=== PATIENT | male | born 1990 | race African-American/Black ===

== ENCOUNTER 2018-12-25 02:03 | Inpatient (IN) | payer MEDICARE, MEDICAID ==
[2018-12-25] MEDS ORDERED: RINGERS SOLUTION,LACTATED 1,000 ML IV ONE (02:09)
--- NOTE | 2018-12-25 02:15 | ER Document Report ---
ED General - General Stated Complaint: DIFFICULTY BREATHING Time Seen by Provider: 12/25/18 02:07 Cannot obtain history due to: Unstable vital signs Notes: Patient is a 28-year-old male with past medical history of essential hypertension, schizophrenia, presents by EMS with profoundly low blood pressure. EMS reports that they were called as a general illness call, when they arrived patient was noted to be sitting on the toilet, pale, diaphoretic and did not have palpable radial pulses. They state that they could not obtain a blood pressure automatic or manual methods. Patient was given fluids in route to the hospital with minimal improvement of his blood pressure. Patient himself states that each night that he takes his blood pressure pill he feels "crappy" and relates lightheadedness and feeling he is going to pass out. He is also had some nausea and vomiting when he has these episodes of feeling this way. History is otherwise limited secondary to the patient's profound instability at time of presentation Past Medical History - General Information source: Patient - Social History Smoking Status: Never Smoker Frequency of alcohol use: None Drug Abuse: None Lives with: Parents Family History: Reviewed & Not Pertinent Review of Systems - Review of Systems Notes: Constitutional: Negative for fever. Positive for lightheadedness HENT: Negative for sore throat. Eyes: Negative for visual changes. Cardiovascular: Positive chest discomfort Respiratory: Negative for shortness of breath. Gastrointestinal: Negative for abdominal pain, positive for nausea Genitourinary: Negative for dysuria. Musculoskeletal: Negative for back pain. Skin: Negative for rash. Neurological: Negative for headaches, weakness or numbness. 10 point ROS negative except as marked above and in HPI. Physical Exam - Vital signs Vitals: Resp 19 12/25/18 02:05 Interpretation: Hypotensive, Tachycardic Notes: PHYSICAL EXAMINATION: GENERAL: Extremely ill in appearance, price in color. Somewhat listless although does speak in complete sentences HEAD: Atraumatic, normocephalic. EYES: Pupils equal round and reactive to light, extraocular movements intact, sclera anicteric, conjunctiva are normal. ENT: nares patent, oropharynx clear without exudates. Moderately dry mucous membranes. NECK: Normal range of motion, supple without lymphadenopathy LUNGS: Mild tachypnea with shallow respirations HEART: Regular tachycardia without murmurs ABDOMEN: Soft, obese abdomen, nontender, normoactive bowel sounds. No guarding, no rebound. No masses appreciated. EXTREMITIES: no pitting or edema. No cyanosis. NEUROLOGICAL: No focal neurological deficits. Moves all extremities spontaneously and on command. PSYCH: Somewhat lethargic although answers all questions appropriately SKIN: Cool, diaphoretic skin Course - Re-evaluation Re-evalutation: 12/25/18 02:12 Patient presents mildly ill in appearance, however mentating. Mildly slow to respond to any questions. Blood pressure is however profoundly low initial systolic of 50. The patient reports that each time he takes his medications in the that he feels this way. He was recently started on a combination of lisinoprilhydrochlorothiazide / and began taking it 1 week ago. States that since that time he has continued to feel this way each time he takes the medication. The patient also takes quetiapine, haloperidol. Denies taking any extra medications of any kind. EMSs report that when they first got that the patient denied to have palpable radial pulses. The pressure improved slightly in route to the hospital. However at the time of my evaluation is again profoundly low. We have ordered 2 L of lactated Ringer's to be bolused wide open on pressure bags. If this does not bring the patient's blood pressure into acceptable range a central line will be placed for infusion of norepinephrine. Patient is critically ill, in guarded condition and will continue to be reassessed at regular intervals. 12/25/18 02:53 Documentation delayed as have been at this patient's bedside continuously since arrival. The patient continued to have precipitous decline of his blood pressure despite fluid boluses. Systolic pressure went as low as 40. At this point I did push 50 mcg of IV epinephrine directly as I was worried the patient will be scott-arrest at such a pressure. This did bring his blood pressures in the 1 teens and allowed for time to place a right femoral central line. This was placed on second attempt as the guidewire did become bent during dilation on the first dilation secondary to patient's obesity. Second attempt without any complication. Patient tolerated procedure well. Norepinephrine infusion initiated thereafter targeting a goal mean arterial pressure of 65. It is very unusual that despite multiple pressure checks and multiple different extremities including manual pressures the patient's blood pressure continues to be sober from the low yet he continues to mentate. The exact etiology of the patient's hypotension is unclear to me although it appears to be medication related as I cannot see any discernible additional cause of the causing this. EKG is normal. The patient on bedside echocardiogram did not demonstrate any evidence of a pericardial effusion. Fast exam without any evidence of intraperitoneal bleed. Chest x-ray pending although pleural ultrasound does not demonstrate any evidence of a pneumothorax. Labs are pending as we were unable to obtain labs from initial lines but these will be pulled off of central line. 12/25/18 03:04 Patient blood pressure is currently 101/69 on 4 mcg/min of norepinephrine. Mentation and overall appearance is much improved. Labs pending. Chest x-ray pending. 12/25/18 03:55 Chest x-ray without evidence of pneumothorax. Blood pressure 115 on 45 on 6 of norepinephrine. Labs do show renal failure with a creatinine of 3.3, BUN 30. Bladder ultrasound does not show any evidence of significant urinary retention and patient does decline a Strauss catheter for I's and O's monitoring. I cannot see any alternative explanation at this time for the patient's profound hypotension except medication overdose or a very severe response to lisinopril/hydrochlorthiazide. The patient has received a stress dose of Solu- Cortef 100 mg. I did discuss with the hospitalist Dr. Urias who advised blood cultures and 1 g of ceftriaxone. Patient does not have an obvious identifiable source of infection although I do agree this is a reasonable management point at this time. 12/25/18 04:06 - Vital Signs Vital signs: Temp Pulse Resp BP Pulse Ox 97.8 F 15 100/49 L 99 12/25/18 02:14 12/25/18 03:41 12/25/18 03:41 12/25/18 03:41 - Laboratory Result Diagrams: 12/25/18 02:54 12/25/18 02:54 Laboratory results interpreted by me: 12/25/18 12/25/18 02:54 02:54 WBC 13.7 H Hgb 12.3 L MCH 26.8 L RDW 14.9 H Seg Neutrophils % 84.2 H Lymphocytes % 8.6 L Absolute Neutrophils 11.6 H BUN 30 H Creatinine 3.22 H Est GFR ( Amer) 28 L Est GFR (Non-Af Amer) 23 L Glucose 121 H Alkaline Phosphatase 160 H Creatine Kinase 377 H - Diagnostic Test Radiology reviewed: Image reviewed, Reports reviewed Radiology results interpreted by me: 12/25/18 03:57 Chest x-ray: No acute infiltrate or pneumothorax - EKG Interpretation by Me Additional EKG results interpreted by me: 12/25/18 03:57 Sinus tachycardia, rate 109. No ST elevations or depressions. QTC is 453. Procedures - Central Line Right Femoral Consent obtained: No - Emergent, severe hypotension Central line pre-insertion: Sterile PPE donned, Chloraprep applied, Sterile drapes applied Central line lumen type: Triple Anesthetic type: 1% Lidocaine mL's of anesthesia: 5 Ultrasound guided: Yes CM at insertion site: 30 Line secured with sutures: Yes Central line post-insertion: Blood return from lumens, Biopatch applied, Sutured, Sterile dressing applied, Position confirmed w/ CXR Number of attempts: 2 Complications: No Notes: 12/25/18 03:58 Initial wire did not bend on dilation requiring wire to be removed and procedure to be restarted. Second attempt completed without any complication. Critical Care Note - Critical Care Note Total time excluding time spent on procedures (mins): 85 Comments: Critical care time spent obtaining history from patient or surrogate, discussions with consultants, development of treatment plan with patient or surrogate, evaluation of patient's response to treatment, examination of patient, ordering and performing treatments and interventions, ordering and r eview of laboratory studies, re-evaluation of patient's condition, ordering and review of radiographic studies Discharge - Discharge Clinical Impression: Vasogenic shock, Diaphoresis Acute renal failure Qualifiers: Acute renal failure type: unspecified Qualified Code(s): N17.9 - Acute kidney failure, unspecified Condition: Critical Disposition: ADMITTED INPATIENT Admitting Provider: Chris (Hospitalist) Unit Admitted: ICU
[2018-12-25] MEDS ORDERED: EPINEPHRINE INJ/PF 1 MG/1 ML AMPULE ONE (02:21)
[2018-12-25] MEDS ORDERED: NOREPINEPHRINE BITARTRATE INJ/PF 4 MG/4 ML SDV IV ONE (02:46)
[2018-12-25] MEDS ORDERED: HYDROCORTISONE SOD SUCCINATE INJ/PF 100 MG/2 ML SDV IV ONE (02:53)
[2018-12-25] MEDS ORDERED: DEXTROSE 5%-WATER 250 ML with NOREPINEPHRINE BITARTRATE 4 MG IV PRN ×2 (03:03)
[2018-12-25] MEDS ORDERED: EPINEPHRINE INJ 1 MG/10 ML DISP.SYRIN IV ONE (03:03)
[2018-12-25] MEDS ORDERED: LIDOCAINE 2% URO-JET 5 ML KIT MM ONE (03:03)
[2018-12-25] MEDS ORDERED: NORMAL SALINE 1000 ML 2,000 ML IV ONE (03:03)
[2018-12-25 03:09] LABS: ABSOLUTE BASOPHILS # (AUTO) 0.1 10^3/uL (0.0-0.2); ABSOLUTE LYMPHOCYTES (AUTO) 1.2 10^3/uL (0.5-4.7); ABSOLUTE MONOCYTES (AUTO) 0.9 10^3/uL (0.1-1.4); ABSOLUTE NEUT (AUTO) 11.6 10^3/uL (1.7-8.2); BASOPHILS % (AUTO) 0.5 % (0-2); EOSINOPHILS % (AUTO) 0.2 % (0-6); HEMOGLOBIN 12.3 g/dL (13.5-17.0); LYMPHOCYTES % (AUTO) 8.6 % (13-45); MEAN CORPUSCULAR HEMOGLOBIN 26.8 pg (27.0-33.4); MEAN CORPUSCULAR HGB CONC 32.4 g/dL (32.0-36.0); MEAN CORPUSCULAR VOLUME 83 fl (80-97); MONOCYTES % (AUTO) 6.5 % (3-13); PLATELET COUNT 367 10^3/uL (150-450); RED CELL DISTRIBUTION WIDTH 14.9 % (11.5-14.0); SEGMENTED NEUTROPHILS % (AUTO) 84.2 % (42-78); TOTAL CELLS COUNTED % (AUTO) 100 %; WHITE BLOOD COUNT 13.7 10^3/uL (4.0-10.5)
[2018-12-25 03:28] LABS: ALANINE AMINOTRANSFERASE 44 U/L (21-72); ALBUMIN 3.6 g/dL (3.5-5.0); ALCOHOL < 10 mg/dL (NONE DETECTED); ALKALINE PHOSPHATASE 160 U/L (38-126); ANION GAP 8 (5-19); ASPARTATE AMINO TRANSFERASE 36 U/L (17-59); BILIRUBIN,DIRECT 0.3 mg/dL (0.0-0.4); BILIRUBIN,TOTAL 0.6 mg/dL (0.2-1.3); BLOOD UREA NITROGEN 30 mg/dL (7-20); CALCIUM 9.2 mg/dL (8.4-10.2); CARBON DIOXIDE 24 mmol/L (22-30); CHLORIDE 107 mmol/L (98-107); CREATINE KINASE 377 U/L (55-170); GLUCOSE 121 mg/dL (75-110); POTASSIUM 4.4 mmol/L (3.6-5.0); SODIUM 138.9 mmol/L (137-145); TOTAL PROTEIN 6.4 g/dL (6.3-8.2)
[2018-12-25 03:38] LABS: CREATINE KINASE MB 0.34 ng/mL (<4.55)
[2018-12-25 03:39] LABS: TROPONIN I < 0.012 ng/mL
[2018-12-25] MEDS ORDERED: CEFTRIAXONE INJ 1000 MG VIAL IV ONE (03:45)
[2018-12-25] MEDS ORDERED: MAG HYDROX/AL HYDROX/SIMETH SUSP 30 ML UDCUP PO PRN (03:48)
[2018-12-25] MEDS ORDERED: MAGNESIUM HYDROXIDE SUSP 30 ML UDCUP PO PRN (03:48)
[2018-12-25] MEDS ORDERED: ACETAMINOPHEN 325 MG TABLET PO PRN (03:48)
[2018-12-25] MEDS ORDERED: ZOLPIDEM TARTRATE 5 MG TABLET PO PRN (03:48)
[2018-12-25] MEDS ORDERED: ONDANSETRON HCL INJ/PF 4 MG/2 ML SDV IV PRN (03:48)
[2018-12-25] MEDS ORDERED: CEFTRIAXONE 1 GM/D5W RTU 1 GM/50 ML RTUPB IV ONE (03:53)
--- NOTE | 2018-12-25 04:01 | RADIOLOGY REPORT (SQ) ---
Chest single view on 12/25/2018 at 3:23 AM CLINICAL INDICATION: Chest pain COMPARISON: None FINDINGS: The lungs are clear. Couple of overlying wires are noted. Cardiac, hilar and mediastinal contours are within normal limits. Pulmonary vascularity is within normal limits. No bony abnormality is noted. IMPRESSION: No active disease.
[2018-12-25] MEDS ORDERED: EPINEPHRINE INJ/PF 1 MG/1 ML AMPULE SUBCUT ONE (04:04)
[2018-12-25] MEDS: DEXTROSE 5%-WATER 250 ML with NOREPINEPHRINE BITARTRATE 4 MG IV PRN ×4 (05:08→11:44)
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
--- NOTE | 2018-12-25 06:41 | EKG REPORT ---
SEVERITY:- BORDERLINE ECG - SINUS TACHYCARDIA INFERIOR Q WAVES, PROBABLY NORMAL VARIATION : Confirmed by: Zachariah Flynn MD 25-Dec-2018 06:39:37
[2018-12-25] MEDS: NORMAL SALINE 1000 ML 1,000 ML IV PRN ×3 (07:00→17:24)
[2018-12-25] MEDS: PANTOPRAZOLE SODIUM 40 MG TABLET.DR PO SCH (09:00)
[2018-12-25] MEDS: ENOXAPARIN SODIUM INJ 40 MG/0.4 ML DISP.SYRIN SUBCUT SCH (09:02)
--- NOTE | 2018-12-25 09:25 | PDOC PROGRESS REPORT ---
Subjective Progress Note for:: 12/25/18 Subjective:: 28 year old -Palest[place] male with a history of schizophrenia, bipolar disorder and PTSD as well as hypertension and insomnia who presented to the emergency room with acute onset of dizziness and diaphoresis and low blood pressure. The patient took his lisinopril HCT as well as 2 tablets of Haldol 5 mg, 1 p.o. Seroquel as well as 2 Neurontin 300 mg and slept around 8 PM. He woke up at 10:20 PM diaphoretic and dizzy. He was trying to go to the bathroom to have a bowel movement and could not stand. He later admitted to go there however his color turned price per his family's report. EMS was called. They were not able to get a blood pressure on him. They started IV fluids on him and brought him to the emergency room. Upon arrival to the ER, his initial blood pressure was 57/43 with a pulse of 109 respiratory rate of 15, temperature 97.8 and pulse oximetry of 92% on room air. Labs revealed leukocytosis of 13.7 with neutrophilia of 84.2 with absolute neutrophils 11.7. Hemoglobin was 12.3 hematocrit 38 with platelets of 367. His CMP revealed a BUN of 30 and creatinine 3.2 with alk phos of 160 and CK of 377 and his lactic acid was 2. His alcohol level was less than 10. The patient admits to smoking cocaine however he stated the last time was Tuesday night. He also smokes marijuana occasionally. He was given 2 L bolus of IV normal saline 1 L of IV lactated Ringer as well as 1 mg of subcu epi and 1 mg of IV epinephrine. His blood pressure was still suboptimal at 77/39 and therefore he was started on IV Levophed. His blood pressures been came up to 110/37. His urinalysis was was still pending and therefore he was started on IV Rocephin 1 g. His portable chest x-ray showed no acute cardiopulmonary disease. He will be admitted to an ICU bed for further evaluation and management. 01/04/2019 9:10 AM patient is comfortably in the bed communicating well. Denies any suicidal ideation. He admitted that he is taking extra psychiatric medications because present dose is not working. His blood pressure at this point is 116/65 with a heart rate of 99. Pulse ox is 99% on room air. He is still on Levophed 10 mics. Also on IV fluids at 150 cc/h. Plan is to keep him in ICU for another day. His psychiatric medications are on hold. Psych consult was requested.[id number] Reason For Visit: SHOCK Physical Exam Vital Signs: Temp Pulse Resp BP Pulse Ox 97.4 F 96 20 115/59 L 94 12/25/18 08:00 12/25/18 08:00 12/25/18 08:00 12/25/18 08:00 12/25/18 08:00 Intake & Output 12/24/18 12/25/18 12/26/18 06:59 06:59 06:59 Intake Total 2002 116 Output Total 0 Balance 2002 116 Weight 167 kg General appearance: PRESENT: no acute distress, obese Head exam: PRESENT: atraumatic Eye exam: PRESENT: PERRLA Mouth exam: PRESENT: moist, tongue midline Teeth exam: PRESENT: poor dentation Neck exam: ABSENT: carotid bruit, JVD, lymphadenopathy, thyromegaly Respiratory exam: PRESENT: clear to auscultation verna. ABSENT: rales, rhonchi, wheezes Cardiovascular exam: PRESENT: RRR. ABSENT: diastolic murmur, rubs, systolic murmur GI/Abdominal exam: PRESENT: normal bowel sounds, soft. ABSENT: distended, guarding, mass, organolmegaly, rebound, tenderness Extremities exam: PRESENT: full ROM. ABSENT: calf tenderness, clubbing, pedal edema Neurological exam: PRESENT: alert, awake, oriented to person, oriented to place, oriented to time, oriented to situation, CN II-XII grossly intact. ABSENT: motor sensory deficit Psychiatric exam: PRESENT: appropriate affect, normal mood. ABSENT: homicidal ideation, suicidal ideation Results Laboratory Results: 12/25/18 02:54 12/25/18 02:54 12/25/18 12/25/18 12/25/18 02:54 02:54 02:54 WBC 13.7 H RBC 4.60 Hgb 12.3 L Hct 38.0 MCV 83 MCH 26.8 L MCHC 32.4 RDW 14.9 H Plt Count 367 Seg Neutrophils % 84.2 H Lymphocytes % 8.6 L Monocytes % 6.5 Eosinophils % 0.2 Basophils % 0.5 Absolute Neutrophils 11.6 H Absolute Lymphocytes 1.2 Absolute Monocytes 0.9 Absolute Eosinophils 0.0 Absolute Basophils 0.1 Sodium 138.9 Potassium 4.4 Chloride 107 Carbon Dioxide 24 Anion Gap 8 BUN 30 H Creatinine 3.22 H Est GFR ( Amer) 28 L Est GFR (Non-Af Amer) 23 L Glucose 121 H Lactic Acid 2.0 Calcium 9.2 Total Bilirubin 0.6 AST 36 ALT 44 Alkaline Phosphatase 160 H Total Protein 6.4 Albumin 3.6 12/25/18 12/25/18 02:54 02:54 Creatine Kinase 377 H CK-MB (CK-2) 0.34 Troponin I < 0.012 Impressions: Chest X-Ray 12/25/18 02:08 IMPRESSION: No active disease. Assessment and Plan - Diagnosis (1) Acute kidney injury Is this a current diagnosis for this admission?: Yes Plan: He will be hydrated with IV normal saline and his BMP will be followed. His lisinopril HCT will be held off. 12/25/2018-patient's serum creatinine on admission is 3.2 between have any previous creatinine levels. Baseline is unknown. Acute kidney injury most likely secondary to prerenal causes and lisinopril. Lisinopril/hydrochlorothiazide is on hold patient is receiving IV fluids at 150 cc/h. Patient is on also on Levophed. Renal ultrasound is requested. (2) Shock Is this a current diagnosis for this admission?: Yes Plan: The patient's blood pressure has improved on IV Levophed. His hypotension and shock unlikely related to his antihypertensive therapy. It could be partly exacerbated by volume depletion. I cannot rule out infectious etiology before the results of his urinalysis. He will be admitted to an ICU bed and continued on it. This will be tapered gradually today while continuing hydration with IV normal saline. His lisinopril HCT will obviously be held off. We empirically placed him on IV Rocephin for the possibility of infectious etiology and septic shock. I advised the patient to check his blood pressure at least twice a day at home. He has not taken but [address] in the last 13 days since he had his prescription. 12/25/2018 patient came in with a very low blood pressures he was also symptomatic with dizziness unable to stand up at home. He was given IV fluids boluses in the emergency room and started on IV Levophed. Hypotensive shock most likely se condary to poor oral intake and blood pressure medications. Lisinopril/hydrochlorothiazide is on hold. plan Is to continue IV fluids and Levophed at this point. (3) Bipolar disorder Is this a current diagnosis for this admission?: Yes Plan: We will continue Seroquel and Neurontin. 12/25/2018-patient has history of bipolar disorder he is on Seroquel, trazodone, Neurontin, haloperidol at home those medications are on hold psych consult was requested. (4) History of hypertension Is this a current diagnosis for this admission?: Yes Plan: His lisinopril HCT will be held off For 82,019 patient has history of hypertension taking lisinopril/hydrochlorothiazide at home. Because of the acute renal failure and hypertension blood pressure medications are on hold. (5) Morbid obesity Is this a current diagnosis for this admission?: No Plan: 12/25/2018-patient's BMI is more than 40 diet exercise weight loss lifestyle modifications are discussed with. Dietary consult was requested. - Time Time Spent with patient: 25-34 minutes Smoking Cessation Education: over 10 minutes Medications reviewed and adjusted accordingly: Yes Anticipated discharge: Home
[2018-12-25] MEDS: NICOTINE 21 MG/24 HR PATCH.TD24 TD SCH (09:44)
--- NOTE | 2018-12-25 10:24 | RADIOLOGY REPORT (SQ) ---
EXAM DESCRIPTION: U/S RETROPERITON (RENAL/AORTA) COMPLETED DATE/TIME: 12/25/2018 10:07 am REASON FOR STUDY: renal failure COMPARISON: None. TECHNIQUE: Dynamic and static grayscale images acquired of the kidneys and bladder and recorded on P ACS. Additional selected color Doppler and spectral images recorded. LIMITATIONS: The examination is limited due to patient's body habitus. FINDINGS: RIGHT KIDNEY: The right kidney measures 12.0 x 6.5 x 7.2 cm, normal size. Normal echogeni city. No solid or suspicious masses. No hydronephrosis. No calcifications. LEFT KIDNEY: The left kidney measures 11.2 x 5.8 x 6.0 cm, normal size. Normal echogenicity. No darrell d or suspicious masses. No hydronephrosis. No calcifications. BLADDER: No masses. Bilateral ureteral jets visualized. OTHER FINDINGS: No other significant finding. IMPRESSION: 1. NORMAL RENAL ultrasound. TECHNICAL DOCUMENTATION: JOB ID: [id number] [employer]- All Rights Reserved Reading location - IP/workstation name: [email or web address]
[2018-12-25 10:27] LABS: URINE AMPHETAMINES SCREEN NEGATIVE; URINE BARBITURATES SCREEN NEGATIVE; URINE BENZODIAZEPINES SCREEN NEGATIVE; URINE METHADONE SCREEN NEGATIVE; URINE PHENCYCLIDINE SCREEN NEGATIVE
[2018-12-25 10:39] LABS: URINE COCAINE SCREEN UNCONFIRMED POSITIVE
[2018-12-25 10:40] LABS: URINE MARIJUANA (THC) SCREEN UNCONFIRMED POSITIVE
[2018-12-25 12:01] LABS: ABSOLUTE BASOPHILS # (AUTO) 0.1 10^3/uL (0.0-0.2); ABSOLUTE LYMPHOCYTES (AUTO) 2.2 10^3/uL (0.5-4.7); ABSOLUTE MONOCYTES (AUTO) 1.2 10^3/uL (0.1-1.4); ABSOLUTE NEUT (AUTO) 11.5 10^3/uL (1.7-8.2); BASOPHILS % (AUTO) 0.6 % (0-2); EOSINOPHILS % (AUTO) 0.1 % (0-6); HEMATOCRIT 37.1 % (37.9-51.0); HEMOGLOBIN 12.1 g/dL (13.5-17.0); LYMPHOCYTES % (AUTO) 14.6 % (13-45); MEAN CORPUSCULAR HEMOGLOBIN 26.9 pg (27.0-33.4); MEAN CORPUSCULAR HGB CONC 32.7 g/dL (32.0-36.0); MEAN CORPUSCULAR VOLUME 82 fl (80-97); MONOCYTES % (AUTO) 7.9 % (3-13); PLATELET COUNT 380 10^3/uL (150-450); RED BLOOD COUNT 4.51 10^6/uL (4.35-5.55); SEGMENTED NEUTROPHILS % (AUTO) 76.8 % (42-78); TOTAL CELLS COUNTED % (AUTO) 100 %; WHITE BLOOD COUNT 14.9 10^3/uL (4.0-10.5)
[2018-12-25 12:19] LABS: ALANINE AMINOTRANSFERASE 41 U/L (21-72); ALBUMIN 3.6 g/dL (3.5-5.0); ALKALINE PHOSPHATASE 152 U/L (38-126); ANION GAP 10 (5-19); ASPARTATE AMINO TRANSFERASE 29 U/L (17-59); BILIRUBIN,DIRECT 0.3 mg/dL (0.0-0.4); BILIRUBIN,TOTAL 0.3 mg/dL (0.2-1.3); BLOOD UREA NITROGEN 27 mg/dL (7-20); CALCIUM 8.9 mg/dL (8.4-10.2); CARBON DIOXIDE 25 mmol/L (22-30); CHLORIDE 103 mmol/L (98-107); GLUCOSE 149 mg/dL (75-110); POTASSIUM 4.3 mmol/L (3.6-5.0); SODIUM 137.6 mmol/L (137-145); TOTAL PROTEIN 6.6 g/dL (6.3-8.2)
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
[2018-12-25 12:29] LABS: CREATINE KINASE MB 0.31 ng/mL (<4.55)
[2018-12-25 12:34] LABS: TROPONIN I < 0.012 ng/mL
[2018-12-25] MEDS ORDERED: NORMAL SALINE INJ/PF 0.9% 10 ML SDV IV PRN (13:58)
[2018-12-25 18:02] LABS: CREATINE KINASE MB 0.22 ng/mL (<4.55)
[2018-12-25 18:04] LABS: TROPONIN I < 0.012 ng/mL
[2018-12-26 00:28] LABS: TROPONIN I < 0.012 ng/mL
[2018-12-26] MEDS: NORMAL SALINE 1000 ML 1,000 ML IV PRN (01:22)
[2018-12-26 04:11] LABS: ABSOLUTE BASOPHILS # (AUTO) 0.1 10^3/uL (0.0-0.2); ABSOLUTE EOSINOPHILS # (AUTO) 0.1 10^3/uL (0.0-0.6); ABSOLUTE LYMPHOCYTES (AUTO) 3.6 10^3/uL (0.5-4.7); ABSOLUTE NEUT (AUTO) 5.9 10^3/uL (1.7-8.2); BASOPHILS % (AUTO) 0.8 % (0-2); EOSINOPHILS % (AUTO) 1.1 % (0-6); HEMATOCRIT 38.5 % (37.9-51.0); HEMOGLOBIN 12.6 g/dL (13.5-17.0); LYMPHOCYTES % (AUTO) 33.5 % (13-45); MEAN CORPUSCULAR HEMOGLOBIN 27.1 pg (27.0-33.4); MEAN CORPUSCULAR HGB CONC 32.8 g/dL (32.0-36.0); MEAN CORPUSCULAR VOLUME 83 fl (80-97); MONOCYTES % (AUTO) 9.4 % (3-13); PLATELET COUNT 362 10^3/uL (150-450); RED BLOOD COUNT 4.66 10^6/uL (4.35-5.55); SEGMENTED NEUTROPHILS % (AUTO) 55.2 % (42-78); TOTAL CELLS COUNTED % (AUTO) 100 %; WHITE BLOOD COUNT 10.7 10^3/uL (4.0-10.5)
[2018-12-26 04:40] LABS: ALANINE AMINOTRANSFERASE 35 U/L (21-72); ALBUMIN 3.4 g/dL (3.5-5.0); ALKALINE PHOSPHATASE 150 U/L (38-126); ANION GAP 7 (5-19); ASPARTATE AMINO TRANSFERASE 24 U/L (17-59); BILIRUBIN,DIRECT 0.2 mg/dL (0.0-0.4); BILIRUBIN,TOTAL 0.5 mg/dL (0.2-1.3); BLOOD UREA NITROGEN 24 mg/dL (7-20); CALCIUM 8.8 mg/dL (8.4-10.2); CARBON DIOXIDE 26 mmol/L (22-30); CHLORIDE 105 mmol/L (98-107); GLUCOSE 95 mg/dL (75-110); POTASSIUM 4.1 mmol/L (3.6-5.0); SODIUM 137.6 mmol/L (137-145); TOTAL PROTEIN 6.4 g/dL (6.3-8.2)
[2018-12-26] MEDS: PANTOPRAZOLE SODIUM 40 MG TABLET.DR PO SCH (05:55)
[2018-12-26] MEDS: METOPROLOL TARTRATE 50 MG TABLET PO SCH ×2 (11:11→21:09)
[2018-12-26] MEDS: NICOTINE 21 MG/24 HR PATCH.TD24 TD SCH (11:11)
[2018-12-26] MEDS ORDERED: CEFTRIAXONE 1 GM/D5W RTU 1 GM/50 ML RTUPB IV SCH (11:30)
[2018-12-26] MEDS: ENOXAPARIN SODIUM INJ 40 MG/0.4 ML DISP.SYRIN SUBCUT SCH (14:18)
[2018-12-26] MEDS: CEFTRIAXONE SODIUM 1,000 MG in DEXTROSE 5%-WATER 50 ML IV SCH (14:19)
--- NOTE | 2018-12-26 14:20 | PDOC PROGRESS REPORT ---
Subjective Progress Note for:: 12/26/18 Subjective:: This is a 28 year old -[place] male with a history of hypertension, schizophrenia, bipolar disorder and PTSD who presented with dizziness, diaphoresis and low blood pressure after a recent increase in his antihypertensives. He was also found to be in acute renal failure. There was initially a concern for possible sepsis as he also had leukocytosis when he pr esented. He was given IV fluids in the ER but eventually required levophed and was admitted to the ICU. No acute event overnight. He has been off levophed last night since 10 pm. His blood pressures are now running in the higher end in the 160/90s. He denies acute complaints. He says he feels good today. Denies dizziness, headache, chest pain or SOB. Reason For Visit: SHOCK Physical Exam Vital Signs: Temp Pulse Resp BP Pulse Ox 98.2 F 82 15 104/54 L 98 12/26/18 12:00 12/26/18 12:00 12/26/18 12:00 12/26/18 12:00 12/26/18 12:00 Intake & Output 12/25/18 12/26/18 12/27/18 06:59 06:59 06:59 Intake Total 2002 3556 240 Output Total 4829 460 Balance 2002 -1273 -220 Weight 368 lb 2.751 oz 362 lb 14.094 oz General appearance: PRESENT: no acute distress, morbidly obese Head exam: PRESENT: atraumatic, normocephalic Eye exam: PRESENT: conjunctiva pink, EOMI, PERRLA. ABSENT: scleral icterus Ear exam: PRESENT: normal external ear exam Mouth exam: PRESENT: moist, tongue midline Neck exam: ABSENT: carotid bruit, JVD, lymphadenopathy, thyromegaly Respiratory exam: PRESENT: clear to auscultation verna. ABSENT: rales, rhonchi, wheezes Cardiovascular exam: PRESENT: RRR. ABSENT: diastolic murmur, rubs, systolic murmur Pulses: PRESENT: normal dorsalis pedis pul GI/Abdominal exam: PRESENT: normal bowel sounds, soft. ABSENT: distended, guarding, mass, organolmegaly, rebound, tenderness Rectal exam: PRESENT: deferred Neurological exam: PRESENT: alert, awake, oriented to person, oriented to place, oriented to time, oriented to situation, CN II-XII grossly intact. ABSENT: motor sensory deficit Results Laboratory Results: 12/26/18 03:38 12/26/18 03:38 12/26/18 12/26/18 03:38 03:38 WBC 10.7 H RBC 4.66 Hgb 12.6 L Hct 38.5 MCV 83 MCH 27.1 MCHC 32.8 RDW 15.0 H Plt Count 362 Seg Neutrophils % 55.2 Lymphocytes % 33.5 Monocytes % 9.4 Eosinophils % 1.1 Basophils % 0.8 Absolute Neutrophils 5.9 Absolute Lymphocytes 3.6 Absolute Monocytes 1.0 Absolute Eosinophils 0.1 Absolute Basophils 0.1 Sodium 137.6 Potassium 4.1 Chloride 105 Carbon Dioxide 26 Anion Gap 7 BUN 24 H Creatinine 1.67 H Est GFR ( Amer) > 60 Est GFR (Non-Af Amer) 50 L Glucose 95 Calcium 8.8 Magnesium 2.3 Total Bilirubin 0.5 AST 24 ALT 35 Alkaline Phosphatase 150 H Total Protein 6.4 Albumin 3.4 L 12/25/18 12/25/18 12/25/18 02:54 02:54 11:20 Creatine Kinase 377 H 271 H CK-MB (CK-2) 0.34 Troponin I < 0.012 12/25/18 12/25/18 12/25/18 11:20 17:20 17:20 Creatine Kinase 240 H CK-MB (CK-2) 0.31 0.22 Troponin I < 0.012 < 0.012 12/25/18 12/25/18 23:41 23:41 Creatine Kinase 4516 H CK-MB (CK-2) 0.30 Troponin I < 0.012 Impressions: Renal Ultrasound 12/25/18 00:00 IMPRESSION: 1. NORMAL RENAL ultrasound. Chest X-Ray 12/25/18 02:08 IMPRESSION: No active disease. Assessment and Plan - Diagnosis (1) Shock Is this a current diagnosis for this admission?: Yes Plan: Now resolved. Possibly medication-induced from antihypertensives. He did have some leukocytosis on presentation. Lactic acid was normal. Blood and urine cultures were sent with pending results. Appears urinalysis was not sent. Chest x-ray is unremarkable. He admits to using cocaine and weed but denies IV drug use. No murmur on physical exam. Will restart patient on Rocephin until cultures are back and finalized. (2) Acute renal failure Qualifiers: Acute renal failure type: unspecified Qualified Code(s): N17.9 - Acute kidney failure, unspecified Is this a current diagnosis for this admission?: Yes Plan: Likely a combination of pre-renal RICHARD and hypotension-induced ATN. Creatinine has significantly improved and trended down with IV fluids. Renal US unremarkable. (3) Hypertension Is this a current diagnosis for this admission?: Yes Plan: Patient was on lisinopril and HCTZ. Will revise antihypertensives and start him on metoprolol for now. (4) Schizophrenia Is this a current diagnosis for this admission?: Yes Plan: Stable. Will resume home psych meds. Decrease Seroquel per psych recommendation. - Time Time Spent with patient: 25-34 minutes
[2018-12-26] MEDS: GABAPENTIN 300 MG CAPSULE PO SCH ×2 (15:24→21:09)
[2018-12-26 15:41] LABS: APPEARANCE,URINE CLEAR; BILIRUBIN,URINE NEGATIVE (NEGATIVE); COLOR,URINE YELLOW; GLUCOSE, URINE 150 mg/dL (NEGATIVE); KETONES,URINE NEGATIVE (NEGATIVE); LEUKOCYTE ESTERASE,URINE NEGATIVE (NEGATIVE); NITRITE,URINE NEGATIVE (NEGATIVE); PROTEIN,URINE NEGATIVE (NEGATIVE); URINE SPECIFIC GRAVITY 1.018; UROBILINOGEN,URINE NEGATIVE mg/dL (<2.0)
[2018-12-26] MEDS: HALOPERIDOL 5 MG TABLET PO SCH (18:34)
[2018-12-26] MEDS ORDERED: TRAZODONE HCL 50 MG TABLET PO SCH (22:00)
[2018-12-26] MEDS ORDERED: QUETIAPINE FUMARATE 100 MG TABLET PO SCH (22:00)
[2018-12-27] MEDS: PANTOPRAZOLE SODIUM 40 MG TABLET.DR PO SCH (05:56)
[2018-12-27 08:10] LABS: ABSOLUTE BASOPHILS # (AUTO) 0.1 10^3/uL (0.0-0.2); ABSOLUTE EOSINOPHILS # (AUTO) 0.2 10^3/uL (0.0-0.6); ABSOLUTE LYMPHOCYTES (AUTO) 3.1 10^3/uL (0.5-4.7); ABSOLUTE MONOCYTES (AUTO) 0.9 10^3/uL (0.1-1.4); ABSOLUTE NEUT (AUTO) 9.5 10^3/uL (1.7-8.2); BASOPHILS % (AUTO) 0.6 % (0-2); EOSINOPHILS % (AUTO) 1.2 % (0-6); HEMATOCRIT 38.1 % (37.9-51.0); HEMOGLOBIN 12.8 g/dL (13.5-17.0); LYMPHOCYTES % (AUTO) 22.5 % (13-45); MEAN CORPUSCULAR HEMOGLOBIN 27.3 pg (27.0-33.4); MEAN CORPUSCULAR HGB CONC 33.5 g/dL (32.0-36.0); MEAN CORPUSCULAR VOLUME 82 fl (80-97); MONOCYTES % (AUTO) 6.7 % (3-13); PLATELET COUNT 366 10^3/uL (150-450); RED BLOOD COUNT 4.68 10^6/uL (4.35-5.55); RED CELL DISTRIBUTION WIDTH 14.8 % (11.5-14.0); TOTAL CELLS COUNTED % (AUTO) 100 %; WHITE BLOOD COUNT 13.7 10^3/uL (4.0-10.5)
[2018-12-27 08:30] LABS: ALANINE AMINOTRANSFERASE 35 U/L (21-72); ALBUMIN 3.7 g/dL (3.5-5.0); ALKALINE PHOSPHATASE 156 U/L (38-126); ANION GAP 9 (5-19); ASPARTATE AMINO TRANSFERASE 18 U/L (17-59); BILIRUBIN,DIRECT 0.2 mg/dL (0.0-0.4); BILIRUBIN,TOTAL 0.2 mg/dL (0.2-1.3); BLOOD UREA NITROGEN 22 mg/dL (7-20); CALCIUM 9.4 mg/dL (8.4-10.2); CARBON DIOXIDE 28 mmol/L (22-30); CHLORIDE 101 mmol/L (98-107); GLUCOSE 91 mg/dL (75-110); POTASSIUM 4.3 mmol/L (3.6-5.0); SODIUM 138.1 mmol/L (137-145)
[2018-12-27] MEDS: NICOTINE 21 MG/24 HR PATCH.TD24 TD SCH (09:12)
[2018-12-27] MEDS: HALOPERIDOL 5 MG TABLET PO SCH (09:12)
[2018-12-27] MEDS: GABAPENTIN 300 MG CAPSULE PO SCH (09:12)
[2018-12-27] MEDS: METOPROLOL TARTRATE 50 MG TABLET PO SCH (09:12)
[2018-12-27] MEDS: ENOXAPARIN SODIUM INJ 40 MG/0.4 ML DISP.SYRIN SUBCUT SCH (09:13)
[2018-12-27] MEDS: CEFTRIAXONE SODIUM 1,000 MG in DEXTROSE 5%-WATER 50 ML IV SCH (10:44)
[2018-12-27 12:13] VITALS: BP 131/53
--- NOTE | 2018-12-27 18:26 | PDOC DISCHARGE SUMMARY ---
General - Admit/Disc Date/PCP Admission Date/Primary Care Provider: 12/25/18 04:41 Discharge Date: 12/27/18 - Discharge Diagnosis (1) Shock Is this a current diagnosis for this admission?: Yes Summary: Likely combination of vasogenic shock from antihypertensives and hypovolemic atiya ck from volume depletion. (2) Acute renal failure Is this a current diagnosis for this admission?: Yes (3) Hypertension Is this a current diagnosis for this admission?: Yes (4) Schizophrenia Is this a current diagnosis for this admission?: Yes - Additional Information Resuscitation Status: Full Code Discharge Diet: Regular Discharge Activity: Activity As Tolerated Prescriptions: Metoprolol Tartrate [Lopressor 50 mg Tablet] 50 mg PO Q12 #60 tablet Quetiapine Fumarate [Seroquel 100 mg Tablet] 100 mg PO QHS #30 tablet Home Medications: Gabapentin [Neurontin 300 mg Capsule] 300 mg PO Q12 12/25/18 Haloperidol [Haldol 5 mg Tablet] 5 mg PO BID 12/25/18 Oxycodone HCl/Acetaminophen [Percocet 10-325 mg Tablet] 1 tab PO QID PRN 0 12/25/18 Trazodone HCl 50 mg PO QHS 12/25/18 Metoprolol Tartrate [Lopressor 50 mg Tablet] 50 mg PO Q12 #60 tablet 12/27/18 Quetiapine Fumarate [Seroquel 100 mg Tablet] 100 mg PO QHS #30 tablet 12/27/18 History of Present Illness History of Present Illness: Admitting hospitalist's H&P: LINWOOD HERNANDEZ is a 28 year old -[place]ian male with a history of schizophrenia, bipolar disorder and PTSD as well as hypertension and insomnia who presented to the emergency room with acute onset of dizziness and diaphoresis and low blood pressure. The patient took his lisinopril HCT as well as 2 tablets of Haldol 5 mg, 1 p.o. Seroquel as well as 2 Neurontin 300 mg and slept around 8 PM. He woke up at 10:20 PM diaphoretic and dizzy. He was trying to go to the bathroom to have a bowel movement and could not stand. He later admitted to go there however his color turned price per his family's report. EMS was called. They were not able to get a blood pressure on him. They started IV fluids on him and brought him to the emergency room. Upon arrival to the ER, his initial blood pressure was 57/43 with a pulse of 109 respiratory rate of 15, temperature 97.8 and pulse oximetry of 92% on room air. Labs revealed leukocytosis of 13.7 with neutrophilia of 84.2 with absolute neutrophils 11.7. Hemoglobin was 12.3 hematocrit 38 with platelets of 367. His CMP revealed a BUN of 30 and creatinine 3.2 with alk phos of 160 and CK of 377 and his lactic acid was 2. His alcohol level was less than 10. The patient admits to smoking cocaine however he stated the last time was Tuesday night. He also smokes marijuana occasionally. He was given 2 L bolus of IV normal saline 1 L of IV lactated Ringer as well as 1 mg of subcu epi and 1 mg of IV epinephrine. His blood pressure was still suboptimal at 77/39 and therefore he was started on IV Levophed. His blood pressures been came up to 110/37. His urinalysis was was still pending and therefore he was started on IV Rocephin 1 g. His portable chest x-ray showed no acute cardiopulmonary disease. He will be admitted to an ICU bed for further evaluation and management. Hospital Course Hospital Course: This is a 28 year old -[place]ian male with a history of hypertension, schizophrenia, bipolar disorder and PTSD who presented with dizziness, diaphor esis and low blood pressure after a recent increase in his antihypertensives. He was also found to be in acute renal failure. There was initially a concern for possible sepsis as he also had leukocytosis when he presented. He was given IV fluids in the ER but eventually required levophed and was ad mitted to the ICU. 12/26: He was weaned off levophed fairly quickly overnight. His blood pressures st arted running in the higher end in the 160/90s. He denies acute complaints. He says he feels good today. Denies dizziness, headache, chest pain or SOB. Blood pressure control was optimized with Lopressor. (1) Shock Is this a current diagnosis for this admission?: Yes Plan: Now resolved. Possibly medication-induced from antihypertensives. He did have some leukocytosis on presentation. Lactic acid was normal. Blood and urine cultures negative. (2) Acute renal failure Qualifiers: Acute renal failure type: unspecified Qualified Code(s): N17.9 - Acute kidn ey failure, unspecified Is this a current diagnosis for this admission?: Yes Plan: Likely a combination of pre-renal RICHARD and hypotension-induced ATN. Creatinine has significantly improved and trended down with IV fluids. Renal US unremarkable. (3) Hypertension Is this a current diagnosis for this admission?: Yes Plan: Patient was on lisinopril and HCTZ. Will revise antihypertensives and start him on metoprolol for now. (4) Schizophrenia Is this a current diagnosis for this admission?: Yes Plan: Stable. Will resume home psych meds. Decrease Seroquel per psych recommendation. Physical Exam Vital Signs: Temp Pulse Resp BP Pulse Ox 98.0 F 75 18 131/53 H 97 12/27/18 12:11 12/27/18 12:11 12/27/18 12:11 12/27/18 12:11 12/27/18 12:11 Intake & Output 12/26/18 12/27/18 12/28/18 06:59 06:59 06:59 Intake Total 3556 1290 Output Total 4829 1610 Balance -1273 -320 Weight 362 lb 14.094 oz 347 lb 0.121 oz Results Laboratory Results: 12/27/18 07:00 12/27/18 07:00 12/27/18 12/27/18 07:00 07:00 WBC 13.7 H RBC 4.68 Hgb 12.8 L Hct 38.1 MCV 82 MCH 27.3 MCHC 33.5 RDW 14.8 H Plt Count 366 Seg Neutrophils % 69.0 Lymphocytes % 22.5 Monocytes % 6.7 Eosinophils % 1.2 Basophils % 0.6 Absolute Neutrophils 9.5 H Absolute Lymphocytes 3.1 Absolute Monocytes 0.9 Absolute Eosinophils 0.2 Absolute Basophils 0.1 Sodium 138.1 Potassium 4.3 Chloride 101 Carbon Dioxide 28 Anion Gap 9 BUN 22 H Creatinine 1.25 Est GFR ( Amer) > 60 Est GFR (Non-Af Amer) > 60 Glucose 91 Calcium 9.4 Total Bilirubin 0.2 AST 18 ALT 35 Alkaline Phosphatase 156 H Total Protein 7.0 Albumin 3.7 12/25/18 04:46 Clean Catch Midstream Urine Culture - Final Mixed Urogenital Tracey 12/25/18 12/25/18 12/25/18 02:54 02:54 11:20 Creatine Kinase 377 H 271 H CK-MB (CK-2) 0.34 Troponin I < 0.012 12/25/18 12/25/18 12/25/18 11:20 17:20 17:20 Creatine Kinase 240 H CK-MB (CK-2) 0.31 0.22 Troponin I < 0.012 < 0.012 12/25/18 12/25/18 23:41 23:41 Creatine Kinase 4516 H CK-MB (CK-2) 0.30 Troponin I < 0.012 Impressions: Renal Ultrasound 12/25/18 00:00 IMPRESSION: 1. NORMAL RENAL ultrasound. Chest X-Ray 12/25/18 02:08 IMPRESSION: No active disease. Qualifiers - * PATIENT BEING DISCHARGED WITH ANY OF THE FOLLOWING DIAGNOSIS: No
== END 2018-12-27 12:37 | disposition home or self-care (01) | DRG 915 ==
LOC: ER 02:03 → EH 04:41 → ICU 05:08 → 5 12-26 23:30
PROVIDERS: ADMIT Family Medicine; ATTEND Family Medicine
PROC: 06HM33Z Insertion of Infusion Device into Right Femoral Vein, Percutaneous Approach (ICD-10-PCS; principal; 2018-12-25)
DX: T88.6XXA Anaphylactic reaction due to adverse effect of correct drug or medicament properly administered, initial encounter (principal); R57.1 Hypovolemic shock; N17.9 Acute kidney failure, unspecified; Z68.42 Body mass index [BMI] 45.0-49.9, adult; T46.4X5A Adverse effect of angiotensin-converting-enzyme inhibitors, initial encounter; Y92.002 Bathroom of unspecified non-institutional (private) residence as the place of occurrence of the external cause; I10 Essential (primary) hypertension; I95.89 Other hypotension; F20.9 Schizophrenia, unspecified; F31.9 Bipolar disorder, unspecified; F43.10 Post-traumatic stress disorder, unspecified; G47.00 Insomnia, unspecified; Z82.49 Family history of ischemic heart disease and other diseases of the circulatory system; F17.200 Nicotine dependence, unspecified, uncomplicated; Z79.899 Other long term (current) drug therapy; E66.01 Morbid (severe) obesity due to excess calories
CPT/HCPCS: 36415; 71045; 76770; 80053; 80307; 81001; 82550; 82553; 83605; 83735; 84484; 85025; 87040; 87086; 93005; 93010; 96361; 96365; 96366; 96368; 96375; 99291; 99292; C1751; C1769; J0696; J1642; J1650; J1720; J3490; J7030; J7060

== ENCOUNTER 2019-03-20 12:35 | Emergency (ER) | payer MEDICARE, MEDICAID ==
[2019-03-20] MEDS ORDERED: ONDANSETRON HCL INJ/PF 4 MG/2 ML SDV ONE (12:53)
[2019-03-20 13:48] LABS: ABSOLUTE BASOPHILS # (AUTO) 0.2 10^3/uL (0.0-0.2); ABSOLUTE LYMPHOCYTES (AUTO) 2.7 10^3/uL (0.5-4.7); ABSOLUTE MONOCYTES (AUTO) 0.7 10^3/uL (0.1-1.4); ABSOLUTE NEUT (AUTO) 13.8 10^3/uL (1.7-8.2); BASOPHILS % (AUTO) 0.9 % (0-2); EOSINOPHILS % (AUTO) 0.1 % (0-6); HEMATOCRIT 36.4 % (37.9-51.0); LYMPHOCYTES % (AUTO) 15.7 % (13-45); MEAN CORPUSCULAR HEMOGLOBIN 27.3 pg (27.0-33.4); MEAN CORPUSCULAR VOLUME 83 fl (80-97); MONOCYTES % (AUTO) 3.8 % (3-13); PLATELET COUNT 355 10^3/uL (150-450); RED CELL DISTRIBUTION WIDTH 14.2 % (11.5-14.0); SEGMENTED NEUTROPHILS % (AUTO) 79.5 % (42-78); TOTAL CELLS COUNTED % (AUTO) 100 %; WHITE BLOOD COUNT 17.3 10^3/uL (4.0-10.5)
[2019-03-20 14:05] LABS: ALANINE AMINOTRANSFERASE 37 U/L (21-72); ALBUMIN 3.9 g/dL (3.5-5.0); ALKALINE PHOSPHATASE 140 U/L (38-126); ANION GAP 8 (5-19); ASPARTATE AMINO TRANSFERASE 43 U/L (17-59); BILIRUBIN,DIRECT 0.3 mg/dL (0.0-0.4); BILIRUBIN,TOTAL 0.5 mg/dL (0.2-1.3); BLOOD UREA NITROGEN 10 mg/dL (7-20); CALCIUM 8.6 mg/dL (8.4-10.2); CARBON DIOXIDE 30 mmol/L (22-30); CHLORIDE 97 mmol/L (98-107); GLUCOSE 184 mg/dL (75-110); POTASSIUM 3.7 mmol/L (3.6-5.0); SODIUM 134.8 mmol/L (137-145); TOTAL PROTEIN 7.4 g/dL (6.3-8.2)
--- NOTE | 2019-03-20 14:22 | RADIOLOGY REPORT (SQ) ---
EXAM DESCRIPTION: CHEST SINGLE VIEW COMPLETED DATE/TIME: 03/20/2019 2:10 pm REASON FOR STUDY: CPR was performed by bystanders COMPARISON: 12/25/2018 EXAM PARAMETERS: NUMBER OF VIEWS: One view. TECHNIQUE: Single frontal radiographic view of the chest acquired. RADIATION DOSE: NA LIMITATIONS: None. FINDINGS: LUNGS AND PLEURA: No opacities, masses or pneumothorax. No pleural effusion. MEDIASTINUM AND HILAR STRUCTURES: No masses. Contour normal. HEART AND VASCULAR STRUCTURES: Heart normal in size. Normal vasculature. BONES: No acute findings. HARDWARE: None in the chest. OTHER: No other significant finding. IMPRESSION: NO ACUTE RADIOGRAPHIC FINDING IN THE CHEST. TECHNICAL DOCUMENTATION: JOB ID: [id number] [employer]- All Rights Reserved Reading location - IP/workstation name: [email or web address]
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
[2019-03-20 14:37] LABS: APPEARANCE,URINE CLEAR; BILIRUBIN,URINE NEGATIVE (NEGATIVE); COLOR,URINE YELLOW; GLUCOSE, URINE 50 mg/dL (NEGATIVE); KETONES,URINE NEGATIVE (NEGATIVE); LEUKOCYTE ESTERASE,URINE NEGATIVE (NEGATIVE); NITRITE,URINE NEGATIVE (NEGATIVE); PROTEIN,URINE 30 mg/dL (NEGATIVE); URINE SPECIFIC GRAVITY 1.015; UROBILINOGEN,URINE NEGATIVE mg/dL (<2.0)
[2019-03-20 14:40] LABS: ACETAMINOPHEN < 10 ug/mL (10-30); ALCOHOL < 10 mg/dL (NONE DETECTED); SALICYLATE < 1.0 mg/dL (2.0-20.0)
[2019-03-20 14:52] LABS: URINE AMPHETAMINES SCREEN NEGATIVE; URINE BARBITURATES SCREEN NEGATIVE; URINE BENZODIAZEPINES SCREEN NEGATIVE; URINE COCAINE SCREEN NEGATIVE; URINE MARIJUANA (THC) SCREEN UNCONFIRMED POSITIVE; URINE METHADONE SCREEN NEGATIVE; URINE PHENCYCLIDINE SCREEN NEGATIVE
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
[2019-03-20] MEDS ORDERED: HALOPERIDOL 5 MG TABLET PO SCH (22:00)
[2019-03-20] MEDS ORDERED: QUETIAPINE FUMARATE 25 MG TABLET PO SCH (22:00)
--- NOTE | 2019-03-21 00:17 | EKG REPORT ---
SEVERITY:- BORDERLINE ECG - SINUS RHYTHM INFERIOR Q WAVES, PROBABLY NORMAL VARIATION BORDERLINE PROLONGED QT INTERVAL : Confirmed by: Jerel Anders 21-Mar-2019 00:17:01
[2019-03-21] MEDS ORDERED: IBUPROFEN 600 MG TABLET PO ONE (04:15)
[2019-03-21 08:13] VITALS: BP 112/60
--- NOTE | 2019-03-21 09:50 | ER Document Report ---
Doctor's Note Notes: 03/21/19 09:49 Rounds: Chart reviewed and patient interviewed. Patient apparently took excessive amount of Percocet 10s. Family members perform CPR and that was continued by rescue personnel. Patient was given Narcan and he awakened and was fine. Chest x-ray is normal. Patient says he did not intend to harm himself, b ut simply took an excessive amount of opioids. Patient also acknowledges using cocaine and marijuana. Vital signs are all normal. Patient appears to be medically stable for transfer or discharge. Kandis Vegas MD
--- NOTE | 2019-03-21 12:04 | PSYCHOLOGICAL NOTE ---
Psych Note - Psych Note Date seen by psych provider: 03/21/19 Time seen by psych provider: 09:25 Psych Note: Presenting problem: Presenting problem: OD of three Percocet 10MG, EMS had to Narcan multiple times and CPR. Patient's mood is euthymic with congruent affect is smiling engaging with clinician reports he is feeling "good." Patient denies intentional overdose stating that he was in pain and may have taken an extra pain medication. P atient reports he would like to get off his pain medications however declines assistance from behavioral health team. He reports he would like to go to his outpatient mental health provider, Dr. Jiménez, for further treatment. Medication recommendations per [facility]'s contracted psychiatrist Dr Yong PRADO are as follows Seroquel to 100mg every evening trazodone 50mg every evening Haldol 5mg twice daily Neurontin 300mg twice daily Diagnosis 295.70 (F25.0) schizoaffective disorder; bipolar type per history provided by patient 309.81 (F 43.10) posttraumatic stress disorder per history provided by patient Impression\\plan: Patient is recommended for rescind of IVC and is cleared from acute psychiatric services. Patient reports accidental overdose on prescription pain medication. There is significant concern the patient is misusing his medications. Patient stated that he would be interested in reducing and getting off of his medications however when offered detox assistance he declined. Patient has been provided a local resource list of area providers including mobile crisis contact information. Patient does have an outpatient mental health provider with Dr. Jiménez in [place]. Patient is highly encouraged to talk with his outpatient provider about substance misuse. For continuity of care behavioral health team contacted Dr. Jiménez to address the patient disclosing he would like to work with his outpatient provider to reduce and then discontinue his pain medications after his accidental overdose. Dr. Jiménez reports full cooperation and requests patient to come to his office before 11 AM on 03/23/2019; provided this information. Dr. Son was consulted to care management of this patient; attending physicians in agreement with recommendations and disposition.
== END 2019-03-21 13:52 | disposition home or self-care (01) ==
LOC: ER 12:35
DX: T39.1X1A Poisoning by 4-Aminophenol derivatives, accidental (unintentional), initial encounter (principal); T40.2X1A Poisoning by other opioids, accidental (unintentional), initial encounter; Y92.009 Unspecified place in unspecified non-institutional (private) residence as the place of occurrence of the external cause; M79.602 Pain in left arm; G89.29 Other chronic pain; S41.101S Unspecified open wound of right upper arm, sequela; Z79.891 Long term (current) use of opiate analgesic; F43.10 Post-traumatic stress disorder, unspecified; F25.9 Schizoaffective disorder, unspecified; Z79.899 Other long term (current) drug therapy; D72.829 Elevated white blood cell count, unspecified; F17.200 Nicotine dependence, unspecified, uncomplicated; I10 Essential (primary) hypertension; Z88.0 Allergy status to penicillin
CPT/HCPCS: 93005; 99285; 96374; 36415; 80307 ×4; 85025; 80053; 81001; 71045; 93010; A9270 ×3; J2405